=== PATIENT | female | born 1985 | race Caucasian/White ===

== ENCOUNTER 2019-05-18 10:03 | Emergency (ER) | payer MEDICAID ==
[~2019-05-18] VITALS: Ht 157.5 cm; Wt 65.9 kg
[~2019-05-18 10:03] MED LIST: AMOX500T PO; CETI10CA PO; PREN1TAB49 PO; TRIA15CR55 TOP
[2019-05-18 10:11] VITALS: Ht 157.5 cm; Wt 65.9 kg
[2019-05-18] MEDS ORDERED: NAPR-985 PO (10:35)
--- NOTE | 2019-05-18 14:10 | ERD ---
ER Documentation Chief Complaint Chief Complaint BILATERAL BREAST PAIN HPI 34-year-old female presenting with bilateral breast pain. Patient states is been going for the last month and is been intermittent over the last few months. She states is on both sides. There is no blood or drainage from the nipples. She has not use any medications. Pain is primarily worse over the nipples. Denies other medical problems. ROS All systems reviewed and are negative except as per history of present illness. Medications Home Meds Active Scripts Naproxen* (Naprosyn*) 500 Mg Tablet, 500 MG PO BID PRN for PAIN AND/OR INFLAMMATION, #30 TAB Prov:JOSELINE MOBLEY PA-C 05/18/19 Cetirizine Hcl* (Zyrtec*) 10 Mg Capsule, 10 MG PO DAILY, #10 TAB.CHEW Prov:DAMAIN STONE MD 06/21/16 Triamcinolone Acetonide (Triamcinolone Acetonide) 0.1% - 15 Gm Cream.gm., 1 JENNIFER LIC TOP QID for 7 Days, #1 TUB Prov:DAMIAN STONE MD 06/21/16 Reported Medications Amoxicillin Trihydrate (Amoxicillin) 500 Mg Tablet, 500 MG PO Q8, #30 TAB 05/05/16 Vits W-Ca,Fe,Fa(<1MG) () 1 Tab Tablet, 1 TAB PO DAILY 10/30/12 Allergies Allergies: Coded Allergies: No Known Allergies (Verified Allergy, Unknown, 06/21/16) PMhx/Soc Medical and Surgical Hx: pt denies Medical Hx, pt denies Surgical Hx Hx Alcohol Use: No Hx Substance Use: No Hx Tobacco Use: No Smoking Status: Never smoker FmHx Family History: No diabetes, No coronary disease, No other Physical Exam Vitals Vital Signs Date Temp Pulse Resp B/P (MAP) Pulse Ox O2 O2 Flow FiO2 Time Delivery Rate 05/18/19 97.9 68 18 123/58 98 10:11 (79) Physical Exam GENERAL: The patient is well-appearing, well-nourished, in no acute distress CHEST: Clear to auscultation bilaterally. There are no rales, wheezes or rhonchi. HEART: Regular rate and rhythm. No murmurs, clicks, rubs or gallops. ABDOMEN:Soft, nontender and nondistended. Good bowel sounds. No rebound or guarding. No gross peritonitis. No gross organomegaly or masses. BREAST: No masses felt no erythema to the breast. No induration noted to the breast. No drainage from the nipples. Procedures/MDM DM: 34-year-old female presenting with breast pain. I believe patient's breast pain is associated with hormonal changes and I have low suspicion for breast malignancy. I have low suspicion for infectious process and I do not feel antibiotics are indicated. I do not feel blood work or imaging is indicated. Patient is discharged with strict ER precautions and told to follow-up with primary care within 1 to 2 days for close evaluation. She is told symptoms change or worsen to return immediately to the ER. All questions answered at discharge Departure Diagnosis: Primary Impression: Breast pain Condition: Stable Patient Instructions: Pain Management Referrals: [facility] YOU HAVE RECEIVED A MEDICAL SCREENING EXAM AND THE RESULTS INDICATE THAT YOU DO NOT HAVE A CONDITION THAT REQUIRES URGENT TREATMENT IN THE EMERGENCY DEPARTMENT. FURTHER EVALUATION AND TREATMENT OF YOUR CONDITION CAN WAIT UNTIL YOU ARE SEEN IN YOUR DOCTORS OFFICE WITHIN THE NEXT 1-2 DAYS. IT IS YOUR RESPONSIBILITY TO MAKE AN APPOINTMENT FOR FOLOW-UP CARE. IF YOU HAVE A PRIMARY DOCTOR --you should call your primary doctor and schedule an appointment IF YOU DO NOT HAVE A PRIMARY DOCTOR YOU CAN CALL OUR PHYSICIAN REFERRAL HOTLINE AT IF YOU CAN NOT AFFORD TO SEE A PHYSICIAN YOU CAN CHOSE FROM THE FO[facility] [address] [facility]. [facility] [address] [facility] [facility] [address] [facility]. [facility] [address] [facility]. [facility] [address] [facility]. [facility]. [address] Additional Instructions: FOLLOW UP WITH YOUR PRIMARY CARE PHYSICIAN TOMORROW.Return to this facility if you are not improving as expected. JOSELINE MOBLEY PA-C May 18, 2019 14:10
== END 2019-05-18 11:09 | disposition home or self-care (01) ==
LOC: FTE 10:03
DX: N64.4 Mastodynia (principal)
CPT/HCPCS: 99283